=== PATIENT | female | born 2000 | race Caucasian/White ===

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

== ENCOUNTER 2021-02-21 16:29 | Emergency (ER) | payer MEDICAID ==
[~2021-02-21] VITALS: Ht 170.2 cm; Wt 71.0 kg
[2021-02-21 17:03] VITALS: BP 116/70
[2021-02-21] MEDS ORDERED: CEFD300C3 PO (17:41)
== END 2021-02-21 18:15 | disposition home or self-care (01) ==
LOC: ER 16:30
DX: H66.91 Otitis media, unspecified, right ear (principal); H57.11 Ocular pain, right eye; F41.9 Anxiety disorder, unspecified; F12.90 Cannabis use, unspecified, uncomplicated; Z90.89 Acquired absence of other organs; Z98.890 Other specified postprocedural states; Z88.8 Allergy status to other drugs, medicaments and biological substances; Z79.2 Long term (current) use of antibiotics
CPT/HCPCS: 99283

== ENCOUNTER 2024-08-11 12:33 | Emergency (ER) | payer MEDICAID ==
[~2024-08-11] VITALS: Ht 167.6 cm; Wt 75.0 kg
[2024-08-11 12:34] VITALS: BP 141/82; PULSE 112; RESP 16; O2SAT 100
[2024-08-11] MEDS ORDERED: IBUP-1985 PO (14:28)
[2024-08-11 15:06] VITALS: TEMP 98
== END 2024-08-11 15:08 | disposition home or self-care (01) ==
LOC: ER 12:34
DX: S93.491A Sprain of other ligament of right ankle, initial encounter (principal); F12.90 Cannabis use, unspecified, uncomplicated; Z90.89 Acquired absence of other organs; X50.1XXA Overexertion from prolonged static or awkward postures, initial encounter; Y93.89 Activity, other specified; Y92.89 Other specified places as the place of occurrence of the external cause; Y99.8 Other external cause status
CPT/HCPCS: 73610; 99283